=== PATIENT | male | born 1990 | race Two or more races ===

== ENCOUNTER 2018-10-14 17:58 | Emergency (ER) | payer OTHER ==
[~2018-10-14] VITALS: Ht 165.1 cm; Wt 67.6 kg
[2018-10-14] MEDS ORDERED: NKM (18:12)
--- NOTE | 2018-10-14 18:15 | NUR ---
ED Nurse Note: Patient walked into ED c/o finger laceration at work while cutting [employer]. patient's bleeding controlled. patient is alert awake x4 ambulatory, breathing unlabored and even. Skin is warm to touch.
[2018-10-14 18:25] VITALS: BP 112/71
--- NOTE | 2018-10-14 18:25 | Emergency Room Report ---
History of Present Illness General Chief Complaint: Laceration Source: Patient Present Illness HPI 28-year-old male with no significant past medical history here complaining of pain and minimal bleeding after cutting himself at work left index finger today. Patient was cutting vegetables at work that he accidentally cut his left finger complains of minimal bleeding rating the pain 5 out of 10 without radiation. Sensation is intact. Denies tingling and numbness. Patient is not up-to-date with his tetanus shot however he is refusing a Tdap at this time. Denies chest pain, shortness of breath, palpitation, and all other associated symptoms. Patient has not taken any medication for pain. Allergies: Coded Allergies: No Known Allergies (Unverified , 10/14/18) Patient History Past Medical History: see triage record Past Surgical History: unable to obtain Pertinent Family History: none Immunizations: other - not UTD with Tdap Reviewed Nursing Documentation: PMH: Agreed; PSxH: Agreed Nursing Documentation-PMH Past Medical History: No Stated History Review of Systems All Other Systems: negative except mentioned in HPI Physical Exam Vital Signs Date Time Temp Pulse Resp B/P (MAP) Pulse Ox O2 Delivery O2 Flow Rate FiO2 10/14/18 18:08 98.4 61 15 110/75 (87) 99 Room Air Sp02 EP Interpretation: reviewed, normal General Appearance: normal inspection, well appearing, no apparent distress, alert, GCS 15 Head: normocephalic, atraumatic Eyes: bilateral eye normal inspection, bilateral eye PERRL ENT: normal ENT inspection, hearing grossly normal, normal pharynx, no angioedema Neck: normal inspection, full range of motion, supple, thyroid normal Respiratory: normal inspection, chest non-tender, lungs clear, no rhonchi, no respiratory distress, no wheezing Cardiovascular #1: normal inspection, regular rate, rhythm, no edema, normal capillary refill Gastrointestinal: normal inspection, normal bowel sounds, non tender, soft Rectal: deferred Genitourinary: no CVA tenderness Musculoskeletal: digits/nails normal, gait/station normal, swelling - Superficial laceration left index finger Neurologic: normal inspection, alert, oriented x3 Psychiatric: normal inspection, judgement/insight normal Skin: laceration - Superficial laceration left index finger Lymphatic: normal inspection, no adenopathy Procedures Laceration/Wound Repair Laceration/Wound Repair : Consent: Verbal Wound Location: upper extremity Wound Explored: clean Betadine Prep?: Yes Wound Repaired With: Dermabond Layer Closure?: Yes Sterile Dressing Applied?: No Splint Applied?: No Sling Applied?: No Patient Tolerated: Well Complications: None Medical Decision Making PA Attestation All my diagnosis and treatment plans were reviewed ad discussed with my supervising physician Dr. Krause Diagnostic Impression: Primary Impression: Laceration of finger ER Course 28-year-old male with no significant past medical history here complaining of pain and minimal bleeding after cutting himself at work left index finger today. Patient was cutting vegetables at work that he accidentally cut his left finger complains of minimal bleeding rating the pain 5 out of 10 without radiation. Sensation is intact. Denies tingling and numbness. Patient is not up-to-date with his tetanus shot however he is refusing a Tdap at this time. Denies chest pain, shortness of breath, palpitation, and all other associated symptoms. Patient has not taken any medication for pain. Ddx considered but are not limited to : Superficial laceration, deep laceration , tendon involvement with laceration, laceration with foreign body Vital signs: are WNL, pt. is afebrile H&PE are most consistent with: Superficial laceration of left finger ORDERS: X-ray left finger, ibuprofen ED INTERVENTIONS: Wound closure with Dermabond DISCHARGE: At this time pt. is stable for d/c to home. Will provide printed patient care instructions, and any necessary prescriptions. Care plan and follow up instructions have been discussed with the patient prior to discharge. Other X-Ray Diagnostic Results Other X-Ray Diagnostic Results : X-Ray ordered: Left finger # of Views/Limited Vs Complete: 2 View Indication: Pain EP Interpretation: Yes PA Xray: Interpretation reviewed, by supervising MD, and agrees with findings. Interpretation: no dislocation, no fractures, other - No foreign body Impression: No acute disease Electronically Signed by: gary josé PA-C Last Vital Signs Date Time Temp Pulse Resp B/P (MAP) Pulse Ox O2 Delivery O2 Flow Rate FiO2 10/14/18 18:08 98.4 61 15 110/75 (87) 99 Room Air Disposition: HOME, SELF-CARE Condition: Stable Scripts Ibuprofen* (MOTRIN*) 600 Mg Tablet 600 MG ORAL Q8H PRN for For Pain, #30 TAB 0 Refills Prov: Gary Denis 10/14/18 Referrals: NOT CHOSEN IPA/MD,REFERRING (PCP) Patient Instructions: Laceration Care, Adult Additional Instructions: At this time you are refusing tetanus shot follow-up with your primary care provider in that regard take medication as directed appropriate wound care advised. Gary Denis Oct 14, 2018 18:25
[2018-10-14] MEDS ORDERED: Hydrogen Peroxide 473ml Bottle TOPIC ONE (18:28)
[2018-10-14] MEDS ORDERED: IBUPROFEN600 MG ORAL (18:29)
--- NOTE | 2018-10-14 18:58 | Diagnostic Imaging Report ---
EXAM: XR Left Finger(s), 2 or More Views CLINICAL HISTORY: FB TECHNIQUE: Frontal, lateral and oblique views of finger(s) of the left hand. COMPARISON: No relevant prior studies available. FINDINGS: Bones/joints: No acute fracture. Soft tissues: No radiodense foreign body. IMPRESSION: No acute fracture. No foreign body.
[2018-10-14 19:05] VITALS: BP 112/71
--- NOTE | 2018-10-14 19:06 | NUR ---
ER DISCHARGE NOTE: Patient is cleared to be discharged per YAJAIRA BOWMAN, pt is aox4, on room air, with stable vital signs. pt was given dc and prescription instructions, pt was able to verbalize understanding, pt id band removed without complications. DRESSING APPLIED ORDERED pt is able to ambulate with steady gait. pt took all belongings.
== END 2018-10-14 19:06 | disposition home or self-care (01) ==
LOC: EMR 18:24
DX: S61.211A Laceration without foreign body of left index finger without damage to nail, initial encounter (principal); W26.0XXA Contact with knife, initial encounter; Y93.G9 Activity, other involving cooking and grilling; Y92.511 Restaurant or cafe as the place of occurrence of the external cause; Y99.0 Civilian activity done for income or pay
CPT/HCPCS: 99283